=== PATIENT | female | born 1955 | race Caucasian/White ===

== ENCOUNTER 2024-06-25 21:29 | Emergency (ER) | payer MEDICARE, SELFPAY ==
[2024-06-25 21:31] VITALS: BP 153/105; PULSE 87; RESP 16; TEMP 37.1; O2SAT 97; BMI 28.4
--- NOTE | 2024-06-25 22:04 | RAD_ITS ---
INDICATION: chest pain EXAMINATION/TECHNIQUE: X-RAY - XR Chest 1 View COMPARISON: No relevant prior comparison study available FINDINGS: LINES/DEVICES: None. LUNGS: The lungs are well expanded. No consolidation, edema or effusion. No pneumothorax. MEDIASTINUM AND CARDIOVASCULAR STRUCTURES: Cardiac silhouette not enlarged. Aortic calcifications are seen. Central airways and mediastinal contour are unremarkable. BONES AND SOFT TISSUES: No acute abnormality. Mild scoliotic curvature of the spine. RAD/Chest 1 View (Portable) IMPRESSION: No acute pulmonary finding. Electronically Signed: Robert Winters MD at 22:17 EST ,
[2024-06-25 22:08] LABS: Absolute Lymphocyte Count 2.09 X10^3/uL (0.83-4.51); Absolute Neutrophil Count 5.5 X10^3/uL (2.0-7.7); Basophil# 0.06 X10^3/uL; Basophil% 0.7 % (0-1); Eosinophil# 0.16 X10^3/uL; Eosinophils% 1.9 % (0-5); Hematocrit 41.6 % (37-47); Hemoglobin 13.9 g/dL (12.0-15.0); Lymphocyte # 2.09 X10^3/ul (0.83-4.51); Lymphocyte % 24.8 % (19-41); Mean Corp Hgb Conc 33.4 g/dL (32-36); Mean Corpuscular Volume 83.7 fL (81-99); Mean Platelet Vol. 9.9 fl (6.2-12.0); Monocyte# 0.58 X10^3/uL; Monocyte% 6.9 % (0-10); NRBC Flagged by Analyzer 0 % (0-5); Neutrophil # 5.51 X10^3/uL (2.7-7.7); Neutrophil % 65.5 % (47-70); Platelet Count 395 K/mm3 (150-450); RBC Distribution Width CV 12.6 % (11.6-14.6); RBC Distribution Width SD 38.2 fl (35.1-43.9); Red Blood Count 4.97 M/mm3 (4.2-5.4); White Blood Count 8.4 K/mm3 (4.4-11.0)
[2024-06-25 22:26] LABS: Anion Gap 5 (5-15); BUN 21 mg/dL (7-18); BUN/Creat Ratio 18.8 RATIO (10-20); Calcium,Total 9.4 mg/dL (8.5-10.1); Chloride 108 mmol/L (98-107); Creatinine, Serum 1.12 mg/dL (0.55-1.02); EST Glomerular Filtration Rate 52 mL/min (>60); Est Glom Filt Rate - Afr Amer 62 mL/min (>60); Estimated Creatinine Clearance 46.63 ml/min; Glucose 103 mg/dL (74-106); Potassium 4.1 mmol/L (3.5-5.1); Sodium Level 142 mmol/L (136-145); Troponin-I HS < 3 pg/mL (3.0-54.0)
--- NOTE | 2024-06-25 22:39 | EDS_ITS ---
HPI History of Present Illness Chief Complaint: Palpitations Narrative Narrative: 68-year-old female past medical history of frequent PVCs is supposed to be taking metoprolol as needed. She relates history that she wore a Holter monitor previously and was having frequent PVCs. 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 Lyons, and was told that she was having 6 PVCs for every 10 beats. He told her to schedule her metoprolol. However, she states that her heart rate so low that she does not want to take the metoprolol. Over the last 2 days, she has felt heart palpitations and her heart skipping a beat. She denies any exacerbating or alleviating factors. She presents with her friend who is a nurse practitioner with concern for these irregular heartbeats. [facility] Medical History (Updated 06/25/24 @ 23:31 by Erasto Graham MD) Premature ventricular beats Medical History no medical history Allergy/AdvReac Type Severity Reaction Status Date / Time ciprofloxacin Allergy Unknown NEEDS Verified 06/25/24 21:34 FOLLOW-UP Social History Smoking Status: Never smoker ROS ROS ED ROS Narrative Constitutional: No fever, no chills. Malaise. States she does not feel well. HEENT: No sore throat. No neck pain. No loss of vision. No rhinorrhea. Cardiovascular: No chest pain. Positive palpitations. No pedal edema. Respiratory: No cough, no shortness of breath. Abdominal: No abdominal pain. No nausea. No vomiting. Genitourinary: No dysuria. No hematuria. Musculoskeletal: No myalgias. No arthralgias. Neurologic: No headaches. No dizziness. No lightheadedness. Skin: No rash. No change in color. Psychiatric: No depression. No anxiety. EXAM Physical Exam Narrative Exam Narrative: Afebrile. Vital signs noted. Regular rate with extrasystoles. Lungs clear to auscultation bilaterally. Abdomen soft nontender with normal active bowel sound s. Neurological examination nonfocal and nonlateralizing. Const Vital Signs: 06/25/24 21:31 06/25/24 22:58 06/25/24 22:58 Temperature 98.7 F Temperature Source Oral Pulse Rate 87 69 Respiratory Rate 16 12 Respiratory Effort Blood Pressure 153/105 H 159/65 H Blood Pressure Mean 121 96 Pulse Ox 97 97 97 Oxygen Delivery Method Room Air Room Air Room Air 06/25/24 22:58 06/25/24 23:00 Temperature Temperature Source Pulse Rate 68 Respiratory Rate 16 Respiratory Effort Non-Labored Blood Pressure 147/65 H Blood Pressure Mean 92 Pulse Ox 98 Oxygen Delivery Method Room Air MDM MDM MDM Narrative Medical decision making narrative: Differential diagnosis includes but not limited to PVCs versus PACs versus a combination versus atrial fibrillation. Labs were obtained per nursing protocol and reviewed. CBC shows normal white count of 8.4 with hemoglobin 13.9, hematocrit 41.6, platelet count normal at 395. Chloride is elevated at 108 which I think is nonspecific, glucose of 103. High-sensitivity troponin is less than 3. Chest x-ray interpreted by myself independently shows no evidence of a pneumothorax or pneumonia. I reviewed the radiology report which confirms my independent interpretation. I will add a magnesium and place the patient on the monitor. EKG was obtained and interpreted by myself independently as normal sinus rhythm at 81 bpm with frequent PVCs. No acute ST changes. No STEMI. I reviewed the added magnesium and is normal at 2.0. At this point in time, I feel she can be discharged to follow-up with her graduate school dean. She was also referred to cardiology on-call as she states she wants a second opinion. She was told that she should start her metoprolol again 12.5 mg daily. She has not had bradycardia here in the emergency department as she reported as an outpatient. I feel she can be discharged safely home with follow-up. I do not feel she needs serial enzymes or observation at this time. Return instructions reviewed. Disposition is discharged home in stable condition. History & Record Review Discussion w/independent historian: Patient and Friend Lab Data Attestation: I reviewed the patient's lab results. Labs: Laboratory Results - last 24 hr 06/25/24 22:00 WBC 8.4 RBC 4.97 Hgb 13.9 Hct 41.6 MCV 83.7 MCH 28.0 MCHC 33.4 RDW Std Deviation 38.2 RDW Coeff of Alyx 12.6 Plt Count 395 MPV 9.9 Immature Gran % (Auto) 0.200 Neut % (Auto) 65.5 Lymph % (Auto) 24.8 Stokes % (Auto) 6.9 Eos % (Auto) 1.9 Baso % (Auto) 0.7 Absolute Neuts (auto) 5.5 Absolute Lymphs (auto) 2.09 Nucleated RBC % 0 Sodium 142 Potassium 4.1 Chloride 108 H Carbon Dioxide 28.0 Anion Gap 5 BUN 21 H Creatinine 1.12 H Estim Creat Clear Calc 46.63 Est GFR (MDRD) Af Amer 62 Est GFR (MDRD) Non-Af 52 L BUN/Creatinine Ratio 18.8 Glucose 103 Calcium 9.4 Magnesium 2.0 Troponin I High Sens < 3 L Radiography Diagnostic Testing: Clinical Impression(s) from Imaging Studies Chest X-Ray 06/25/24 22:04 IMPRESSION: No acute pulmonary finding. Electronically Signed: Robert Winters MD at 22:17 EST , Discharge Plan Triage Chief Complaint: Palpitations ED Provider: Erasto Graham Dx/Rx/DC Orders Clinical Impression: Palpitations, Frequent PVCs Instructions: Premature Ventricular Contractions, PVCs, ED About Arrhythmias, ED Palpitations Referrals: Usman Valladares MD [Med Staff - Active Staff] - As Needed Activity Restrictions/Additional Instructions: Follow-up with your graduate school dean as soon as possible. You will need to wear a monitor again as he directed previously. Return with increased palpitations, new or worsening symptoms. Print Language: Samoan Disposition Disposition: Home, Self Care
[2024-06-25 22:58] VITALS: BP 159/65; PULSE 69; RESP 12; O2SAT 97
[2024-06-25 23:00] VITALS: BP 147/65; PULSE 68; RESP 16; O2SAT 98
[2024-06-25 23:38] VITALS: BP 128/75; PULSE 75; RESP 18; TEMP 36.6; O2SAT 100
== END 2024-06-25 23:45 | disposition home or self-care (01) ==
LOC: ED 23:35
PROVIDERS: Emergency Provider Emergency Medicine; Visit Provider Emergency Medicine
DX: R00.2 Palpitations (principal); I49.3 Ventricular premature depolarization; Z79.899 Other long term (current) drug therapy
CPT/HCPCS: 71045; 80048; 83735; 84484; 85025; 93005; 99284; A4216